=== PATIENT | female | born 1995 | race Caucasian/White ===

== ENCOUNTER 2018-08-12 13:42 | Emergency (ER) | payer BC ==
[~2018-08-12] VITALS: Ht 160 cm; Wt 74.8 kg
[2018-08-12 13:50] VITALS: BP 128/73; PULSE 74; RESP 20; Ht 160 cm; Wt 74.8 kg
--- NOTE | 2018-08-12 15:09 | ERD ---
ER Documentation Chief Complaint Chief Complaint L eyelid swelling/redness since yesterday HPI 22-year-old female with past medical history of thyroid cancer presents with complaint of erythema and edema of the left eyelid. States the pain started yesterday. Denies any history of trauma. Denies limited ROM. Denies any loss of vision. Denies pain. Denies scleral injection. States there was a little bit of discharge this morning. Denies taking any treatments. Past medical history of thyroid cancer. Taking levothyroxine. Had thyroidectomy. Denies social. Denies allergies. ROS All systems reviewed and are negative except as per history of present illness. Medications Home Meds Active Scripts Sulfamethoxazole/Trimethoprim* (Bactrim Ds* Tablet) 1 Each Tablet, 1 TAB PO BID for cellulitis for 7 Days, #14 TAB 0 Refills Prov:ORLIN GOMEZ 08/12/18 Cephalexin* (Keflex*) 500 Mg Capsule, 500 MG PO QID for Cellulitis for 7 Days, #28 CAP 0 Refills Prov:ORLIN GOMEZ 08/12/18 Allergies Allergies: Coded Allergies: No Known Allergy (Unverified , 08/12/18) PMhx/Soc History of Surgery: Yes (THYROID TUMOR REMOVED 1O YRS AGO) Hx Neurological Disorder: No Hx Respiratory Disorders: No Hx Cardiac Disorders: No Hx Psychiatric Problems: No Hx Miscellaneous Medical Probl: Yes (THYROID PROBLEM) Hx Alcohol Use: No Hx Substance Use: No Smoking Status: Never smoker FmHx Family History: No diabetes, No coronary disease, No other Physical Exam Vitals Vital Signs Date Temp Pulse Resp B/P (MAP) Pulse Ox O2 O2 Flow FiO2 Time Delivery Rate 08/12/18 98.0 74 20 128/73 95 13:50 (91) Physical Exam Const: No acute distress Eyes: Normal Conjunctiva. Mild erythema, with warmth and edema of the left eyelid with no discharge or crusting noted. Full EOMs intact. Sclera noninjected. No foreign bodies or trauma to globe noted. Resp: Clear to auscultation bilaterally Cardio: Regular rate and rhythm, no murmurs Psych: Normal Mood and Affect Procedures/MDM MDM: 22-year-old female with past medical history of thyroid cancer presents with complaint of erythema and edema of the left eyelid. States the pain started yesterday. Denies any history of trauma. Denies limited ROM. Denies any loss of vision. Denies pain. Denies scleral injection. States there was a little bit of discharge this morning. Denies taking any treatments. Based on patient history and exam I have low suspicion for orbital cellulitis. Findings consistent with periorbital cellulitis. Patient prescribed Keflex and Bactrim. Patient discharged with strict ER precautions. Patient advised to follow up with PMD. All questions answered at discharge. Departure Diagnosis: Primary Impression: Periorbital cellulitis of left eye Condition: Stable ORLIN GOMEZ Aug 12, 2018 15:09
[2018-08-12] MEDS ORDERED: CEPH-443 PO (15:46)
[2018-08-12] MEDS ORDERED: SULF1TAB31 PO (15:50)
== END 2018-08-12 16:00 | disposition home or self-care (01) ==
LOC: FTE 13:42
DX: H05.012 Cellulitis of left orbit (principal); Z85.850 Personal history of malignant neoplasm of thyroid
CPT/HCPCS: 99283